=== PATIENT | female | born 2000 | race Caucasian/White ===

== ENCOUNTER 2020-11-10 01:42 | Inpatient (IN) | payer SELFPAY ==
[2020-11-10] VITALS (34 sets, daily range): BP systolic 93–185; BP diastolic 51–98; PULSE 56–100; TEMP 97.7–99.1
--- NOTE | 2020-11-10 01:45 | NUR ---
Ambulatory to unit, accompanied by significant other. Pt and significant other don't speak Pashto, understand scant. Member Services Representative service used. Pt reports LMP of February 20, started 'leaking water' @ 2:30. No OB care. No surgeries, no allergies. SVE as noted.
[2020-11-10 03:13] LABS: BASO % 0.6 % (0.0-2.0); EOS % 0.6 % (0-4.0); GRAN # 3.6 (1.4-6.5); GRAN % 54.9 % (42.2-75.2); LYMPH # 2.2 (1.2-3.4); LYMPH % 34.5 % (20.0-51.0); MEAN CELL VOLUME 85 fl (80.0-95.0); MEAN CORPUSCULAR HGB CONC 32 g/dl (33.0-37.0); MONO # 0.6 (0.1-0.6); MONO % 8.9 % (1.7-9.3); PLATELET COUNT 173 K/mm3 (130-400); RED BLOOD COUNT 3.58 M/mm3 (4.10-5.30); REDCELL DISTRIBUTION WIDTH-CV 13.4 % (11.5-14.5)
[2020-11-10 03:17] LABS: HEMATOCRIT 30.3 % (35.0-45.0); HEMOGLOBIN 9.7 g/dl (12.0-15.0); MEAN CORPUSCULAR HEMOGLOBIN 27 pg (26.0-32.0)
--- NOTE | 2020-11-10 03:30 | NUR ---
Writhing on bed with contractions,moaning. Asking admission questions and consents through product owner. Pt tells interpretor that man with her is her 'Cousin"
[2020-11-10 03:44] LABS: HIV 1/2 Antibodies Non-Reactive; HIV-1p24 Antigen Non-Reactive
--- NOTE | 2020-11-10 04:25 | NUR ---
PIPE FITTINGS MOLDER into room. Pt moved to side of bed for epidural placement. Pt writhing in disomfort, difficult to maintain positioning. Automatic Door Mechanic on phone, helps with coaching. See anethesia record for epidural placement information.
--- NOTE | 2020-11-10 04:40 | NUR ---
Pt repositioned to lay down, WL. Pt tells tooth cutter pinion "that pain is better"
--- NOTE | 2020-11-10 05:15 | NUR ---
Pt reports "more pain" SVE ant rim/0 station.
--- NOTE | 2020-11-10 05:45 | NUR ---
Feeling more pressure, breathing well with contractions and coaching,
[2020-11-10 07:02] LABS: COLLECTION METHOD CATHETER
[2020-11-10 07:12] LABS: MUCOUS Present /lpf; PH 7 (5-8); SQUAMOUS EPITHELIAL None Seen /hpf; URINE APPEARANCE Clear; URINE BACTERIA None Seen /hpf; URINE BILIRUBIN Negative (NEGATIVE); URINE BLOOD 3+ (NEGATIVE); URINE COLOR Yellow; URINE GLUCOSE Negative (NEGATIVE); URINE KETONE Trace (NEGATIVE); URINE LEUKOCYTE ESTERASE Negative (NEGATIVE); URINE NITRATE Negative (NEGATIVE); URINE PROTEIN(semi-quant) 1+ (NEGATIVE); URINE RBC >50 /hpf; URINE UROBILINOGEN Negative (NEGATIVE)
--- NOTE | 2020-11-10 08:00 | NUR ---
0800-Patient refuses covid swab. Denies symptoms or exposure. Verified with salmon troll fisher line.
--- NOTE | 2020-11-10 09:05 | NUR ---
0905-Dr. Kirk on unit. In to see patient and evalutate pushing. RN updates MD on patient swelling and use of ice inbetween exams during pushing efforts. 0910-Translation service called for MD to communicate with patient regarding plan of care. MD discusses pushing for three hours at this point and exhaustion from pushing. Dr. Kirk provides recomendation of use of Vacuum and patient and MD decide to resume pushing for a few more minutes before trying vacuum. 0915-MD begins pushing with patient. 0930-Pitocin started per MD order at 2mu. 0935-MD sets up for delivery with vacuum. 0936-Sharma Vacuum to patients perineum. 0937-Pressure increased on vacuum to green range per MD. Patient pushes with contraction. 0938-MD releases vacuum pressure inbetween contractions. 0939-Patient pushes with contraction. MD increases vacuum pressure to green range. Pop off x1. 0941-MD reapplies vacuum and increases pressure with contraction. 0943-Delivery of head by MD with vacuum assist. Dr. Kirk removes vacuum and patient continues to push. body immediately follows. Umbilical cord avulsion occurs with delivery of body. MD immediately clamps cord x2 and viable female is placed on mothers abdomen. Care of infant assumed by YAJAIRA Morin. Apgars 8/9/9. 0950-Spontaneous delivery of intact placenta. Placenta sent to pathology per MD. Straight cath by MD, Fundal massage firm, lochia WNL. EBL 300ml. Pitocin bolus per protocol and MD order. Repair of Right labial, LVaginal sidewall and 3rd degree by . Fox catheter placed by MD to leave in overnight due to severe perneal swelling. Lisbeth care and ice applied, Updated patient via translation line on plan of care.
[2020-11-10 10:55] LABS: TRICYCLIC ANTIDEPRESS URINE NEGATIVE
--- NOTE | 2020-11-10 15:00 | NUR ---
1500-Assisted patient with za care, labia remain extremly edematous. Ice to perineum. Fox remains in placer per MD order, dark yellow urine. Stat lock to left thigh. Patient easily ambulates to room 207, oriented to room.
[2020-11-10 15:24] LABS: HEPATITIS B SURFACE ANTIGEN Negative (Negative)
--- NOTE | 2020-11-10 18:30 | NUR ---
Report recieved. Fox catheter emptied by off going nurse. Updated whiteboard. "Cousin" remains at bedside.
--- NOTE | 2020-11-10 20:00 | NUR ---
Ambulated to restroom well. Gómez catheter care provided, ice pack to perineum, pad lined with tucks. Swelling noted in labia minora, labia majora. 300 mls of clear urine drained from gómez. Motrin and Milk of Magnesium administered; educated on both medications. Initially up entering the room, pt noted to be sitting straight up in bed. Encouraged to rest while laying on her side. To attempt to feed at 2100.
[2020-11-11] VITALS: BP 106/54; PULSE 72; TEMP 97.6
[2020-11-11 04:30] VITALS: BP 104/39; PULSE 72; TEMP 97.6
--- NOTE | 2020-11-11 04:30 | NUR ---
Ambulated well to the restroom. Fox catheter dc'd at this time per order to dc in the morning. INT dc'd. Returned to bed. Motrin and one percocet administered. Tolerated well. Will monitor.
--- NOTE | 2020-11-11 06:30 | NUR ---
REPORT RECEIVED FROM SHILPI RN, CARE TAKEN OVER BY THIS RN.
[2020-11-11 08:41] VITALS: BP 107/52; PULSE 68; TEMP 98.2
--- NOTE | 2020-11-11 08:50 | NUR ---
ASSESSMENT COMPLETED. RN COMMUNICATED WITH PATIENT VIA GOOGLE TRANSLATE. PATIENT DENIES PAIN AT PRESENT TIME. RN ENCOURAGED MOTHER TO FEED Q 3 HOURS. DISCHAGE BOARD UPDATED. MEDICATIONS GIVEN. RN ASSISTED PATIENT IN ORDERING BREAKFAST. UNDERSTANDING ACKNOWLEDGED BY PT.
--- NOTE | 2020-11-11 10:15 | NUR ---
Initial visit; Family Egyptian speaking only, Varnish Filterer was able to let them know she was Varnish Filterer and offered God's blessings. They thanked Varnish Filterer.
--- NOTE | 2020-11-11 13:46 | NUR ---
VIA GOOGLE TRANSLATE, RN ENCOURAGED PATIENT TO INCREASE WATER INTAKE SHE NEEDS TWO MORE MEASURED VOIDS. PT ACKNOWLEDGED UNDERSTANDING.
[2020-11-11 15:20] VITALS: BP 97/57; PULSE 79; TEMP 97.7
--- NOTE | 2020-11-11 15:31 | NUR ---
Tree Driller consulted for the patient and the patient's baby girl due to no care. The patient is Yakut speaking. The patient lives in [place] with her cousin Juan Carlos Andres and her uncle Ra Treadwell. Her cousin Juan Carlos was present. Cousin and uncle are supportive. The patient has been in [place] for about a month. The father of the baby is not involved. The patient did not have any care. The patient's barriers to care were no health insurance and no money for physician visits. The patient does not have have a car seat or other supplies. She does have a few clothes. The patient was agreeable to contacting the [facility] and [facility] to discuss supplies and resources. Daja, the [facility]'s container coordinator will not be in the office until November. The [facility] worker informed this SW that the patient could still contact them and they would use a container coordinator line. MARIA DOLORES contacted Miri with [facility]. The patient was agreeable to giving [facility] her contact information. [facility] brought the patient a baby bath, baby bouncer, formula, diapers, a bottle, and clothes. This delivered these items to the patient. The patient gave permission to contact [facility] to inquire about a car seat for the baby. MARIA DOLORES contacted [facility] and Marco reports that Sameer Lott is working on getting a car seat for the patient. MARIA DOLORES discussed the [facility] Resource Guide with the patient. SW to assist the patient in filling out the application to receives diapers and wipes from [facility]. The patient will likely be needing a [employer] application. Rosy Mcmanus, Financial Counselor consulted. MARIA DOLORES collaborated the above information with the patient's nurse.
--- NOTE | 2020-11-11 18:30 | NUR ---
Report recieved. Finished at this time. Updated whiteboard.
[2020-11-11 20:30] VITALS: BP 101/45; PULSE 74; TEMP 97.9
--- NOTE | 2020-11-11 21:00 | NUR ---
Declines Milk of Magnesia due to feeling gassy and as though she may need to have a bowel movement.
--- NOTE | 2020-11-12 04:30 | NUR ---
Asleep in bed at this time. asleep in bed with pt, vigerously crying. Pt soundingly sleeping with the vigerous cry next to her ear. This nurse attempts to wake pt. After multiple attempts and pt pulling the covers over her and the 's head, pt wakes. Educated on safe sleep. to nsy while mother rests. Pt to call once she is awake and would like to return to the room.
[2020-11-12 08:25] VITALS: BP 98/43; PULSE 68; TEMP 98.3
--- NOTE | 2020-11-12 09:27 | NUR ---
VITAL SIGNS AND ASSESSMENTS DONE WITH NURSING STUDENTS
--- NOTE | 2020-11-12 10:00 | NUR ---
Follow up appointment made with [facility] per Dr. Kirk's request.
[2020-11-12] MEDS ORDERED: IBU800 M1 PO (10:37)
--- NOTE | 2020-11-15 13:28 | NUR ---
Patient's infant's cord blood was negative for illegal drugs in system.
== END 2020-11-12 14:20 | disposition home or self-care (01) | DRG 768 ==
LOC: LDRO 01:42 → OB 02:08 → LDR 02:08 → OB 15:00
PROVIDERS: ADMIT Obstetrics & Gynecology
PROC: 10D07Z6 Extraction of Products of Conception, Vacuum, Via Natural or Artificial Opening (ICD-10-PCS; principal; 2020-11-10)
PROC: 0DQR0ZZ Repair Anal Sphincter, Open Approach (ICD-10-PCS; 2020-11-10)
PROC: 0UQGXZZ Repair Vagina, External Approach (ICD-10-PCS; 2020-11-10)
DX: O69.3XX0 Labor and delivery complicated by short cord, not applicable or unspecified (principal); Z37.0 Single live birth; O70.20 Third degree perineal laceration during delivery, unspecified; Z3A.37 37 weeks gestation of pregnancy
CPT/HCPCS: J2405; J2540; J2590; J7120